=== PATIENT | male | born 1950 | race Caucasian/White ===

== ENCOUNTER 2019-05-20 01:25 | Day surgery (SDC) | payer MEDICARE, SELFPAY ==
[2019-05-13 11:03] VITALS: BMI 26.9
[2019-05-20 07:10] VITALS: BP 143/73; PULSE 70; RESP 16; TEMP 36.7; O2SAT 98; BMI 26.6
[2019-05-20] MEDS: LACTATED RINGERS 1,000 ML 150 ML IV CONT (07:24)
--- NOTE | 2019-05-20 07:39 | PM.IMHP ---
H&P: HPI History of Present Illness Chief complaint: Neoplasm Screening Narrative: Parth Alexander is a 68 year old male presents for surveillance colonoscopy. His last colonoscopy was in 2012 and had diverticlosis. he does have hx of large polyp in 2002 and had a post polypectomy bleed that required hospitlization and blood transfusions. He does take metamucil daily to help with constipation. He denies any melena, hematochezia, rectal pains or abdominal pains. He does have chronic left upper rib pain for 3 years that he describes as spasms like. He says there is no correlation with eating or bowel habit changes. Denies abnormal weight loss, fever or chills. Denies family hx of GI maligancies. Review of Systems Review of Systems: All systems reviewed & are unremarkable except as noted in HPI and below PMFSH Past Medical History Medical History (Updated 05/20/19 @ 07:43 by Jessie Lamb, CHURN DRILLER HELPER) Hx of colonic polyps Hx of lower gastrointestinal bleeding Surgical History Surgical History (Updated 05/20/19 @ 07:43 by Jessie Lamb, CH[employer] DRILLER HELPER) History of bilateral knee replacement Hx of colonoscopy Family History Family History (Updated 11/20/17 @ 16:38 by DOCTOR UNKNOWN) Mother Family history of cardiovascular disease, Onset Age: 71 Father Family history of malignant neoplasm, Onset Age: 57 Social History Social History (Updated 05/20/19 @ 07:43 by Jessie Lamb, [employer] DRILLER HELPER) Smoking status: Never smoker Alcohol intake: current Drinks per week: 14 Substance use: never Living arrangements: with family Occupation/Education: occupation Additional occupation/education comments: [employer] Gender identity (if verbalized by the patient): Male Meds Home Medications and Allergies Home Medications Medication Instructions Recorded Confirmed Type amlodipine 10 mg PO DAILY 05/13/19 05/13/19 History gabapentin 600 mg PO TID 05/13/19 05/13/19 History zolpidem 10 mg PO HS 05/13/19 05/13/19 History Allergies Allergy/AdvReac Type Severity Reaction Status Date / Time No Known Allergies Allergy Mild Verified 05/20/19 07:08 Vital Signs Vital Signs - 24 hr 05/20/19 07:10 Temperature 36.7 C Pulse Rate 70 Respiratory Rate 16 Blood Pressure 143/73 H Pulse Oximetry 98 Exam Const: General: cooperative, healthy appearing, comfortable, alert and awake Nutritional Appearance: average body habitus Orientation/consciousness: oriented to person, oriented to place, oriented to time and patient oriented x3 Limitations: no limitations HENMT: Head: normal to inspection and normocephalic Mouth: Yes Normal oral and palatal mucosa present and Yes moist mucous membranes Neck: Neck: normal visual inspection, supple and no JVD Carotids: no bruits Resp: Effort & Inspection: normal respiratory effort and no respiratory distress Auscultation: clear to auscultation bilaterally Cardio: Rate: regular rate Rhythm: regular rhythm Heart sounds: S1 normal heart sound present, S2 normal heart sound present, no gallops, no murmurs and no rubs GI: Inspection: normal to inspection GI Palp: No abdominal tenderness and No No hepatosplenomegaly present Percussion: Yes normal to percussion Auscultation: normal bowel sounds Rectal Exam: deferred Skin: General skin exam: normal color Lesions: no lesions Rashes: no rashes Neuro: General: oriented to person, oriented to place, oriented to time, patient oriented x3 and moves all extremities Cognition (Neuro): normal cognition Speech: normal speech Gait exam (Neuro): Normal gait present Extrem: General: normal to inspection Psych: Appearance: grossly normal Mental Status: mental status grossly normal Speech and movement: Normal speech and movement present Affect: normal affect Attitude: cooperative Thought process: Normal thought process present Assessment and Plan Assessment and plan (1) Hx of colonic polyps: Code(s): Z
--- NOTE | 2019-05-20 07:54 | WPDANESEPPF ---
Anes - Initial Pre Proc Eval Procedure: Operation Date: 05/20/19 08:00 Proposed Procedures p Screening Colonoscopy - Elio Wright DO Date/Time: 05/20/19 07:54 Surgeon: Elio Wright DO Pre Op Diagnosis: Neoplasm Screening Patient Data Age: 68 Gender: M Height: 5 ft 7 in Weight: 77.1 kg Last Vital Signs Temp 98.1 F 05/20/19 07:10 Pulse 70 05/20/19 07:10 Resp 16 05/20/19 07:10 BP 143/73 H 05/20/19 07:10 Pulse Ox 98 05/20/19 07:10 Allergies Allergy/AdvReac Type Severity Reaction Status Date / Time No Known Allergies Allergy Mild Verified 05/20/19 07:08 Home Medications Medication Instructions Recorded Confirmed Type amlodipine 10 mg PO DAILY 05/13/19 05/13/19 History gabapentin 600 mg PO TID 05/13/19 05/13/19 History zolpidem 10 mg PO HS 05/13/19 05/13/19 History Patient hx anesthesia problems: none Family hx anesthesia problems: none PMFSH Past Medical History Medical History (Updated 05/20/19 @ 07:54 by Scout Houser MD) Hx of colonic polyps Hx of lower gastrointestinal bleeding Hx of prostatic malignancy Hyperlipidemia Hypertension Surgical History Surgical History (Updated 05/20/19 @ 07:43 by Jessie Lamb, ELECT[employer]ICS WARF[employer] TECHNICIAN) History of bilateral knee replacement Hx of colonoscopy Family History Family History (Updated 11/20/17 @ 16:38 by DOCTOR UNKNOWN) Mother Family history of cardiovascular disease, Onset Age: 71 Father Family history of malignant neoplasm, Onset Age: 57 Social History Social History (Updated 05/20/19 @ 07:43 by Jessie Lamb, ELECTRON[employer] WARF[employer] TECHNICIAN) Smoking status: Never smoker Alcohol intake: current Drinks per week: 14 Substance use: never Living arrangements: with family Occupation/Education: occupation Additional occupation/education comments: [employer] Gender identity (if verbalized by the patient): Male Anes - Eval Final PreProcedure Day of Procedure 05/20/19 07:54 Patient weight: overweight Heart: regular rate and rhythm Lungs: clear to auscultation Airway: Mallampati scale class II Neurological: alert and oriented Last oral intake: >/= 8 hours ASA classification: III Emergent: no Anesthetic plan: proceed Anesthesia type and monitoring: general GIVS and standard monitoring Informed Consent: The patient's anesthetic plan and its attendant risks and benefits were discussed with the patient/family/POA. Questions were solicited and answers provided to the satisfaction of the patient/family/POA.
[2019-05-20 08:38] VITALS: BP 100/61; PULSE 61; RESP 17; O2SAT 99
[2019-05-20 08:39] VITALS: BP 113/62; PULSE 62; RESP 18; O2SAT 100
[2019-05-20 08:49] VITALS: BP 117/76; PULSE 60; RESP 20; O2SAT 100
== END 2019-05-20 09:03 | disposition home or self-care (01) ==
PROVIDERS: PCP Family Medicine; Visit Provider Internal Medicine Gastroenterology
PROC: 0DJD8ZZ Inspection of Lower Intestinal Tract, Via Natural or Artificial Opening Endoscopic (ICD-10-PCS; CPT 45378; principal; 2019-05-20 08:00)
DX: Z12.11 Encounter for screening for malignant neoplasm of colon (principal); D12.0 Benign neoplasm of cecum; D12.4 Benign neoplasm of descending colon; K63.5 Polyp of colon; K62.1 Rectal polyp; K57.30 Diverticulosis of large intestine without perforation or abscess without bleeding; K64.8 Other hemorrhoids; I10 Essential (primary) hypertension; E78.5 Hyperlipidemia, unspecified; Z85.46 Personal history of malignant neoplasm of prostate
CPT/HCPCS: 45385; 45380; 88305; J2704; J7120

== ENCOUNTER 2019-12-31 13:20 | Outpatient (CLI) | payer MEDICARE, SELFPAY ==
--- NOTE | 2019-12-31 | ECHO_ITS ---
Patient Info Name: Parth Alexander Age: 69 years : 1950 Gender: Male Ht: 67 in Wt: 170 lbs BSA: 1.92 m2 HR: 70 bpm BP: 131 / 84 mmHg Technical Quality: Fair Exam Date: 12/31/2019 1:53 PM Exam Location: [facility] Patient Status: Outpatient Admit Date: 12/31/2019 Staff Ordering Physician: AnahiPk DO Pigment Supplier: Emily Sanots RDCS Attending Provider: Anahi, Pk PERRY Exam Type: CA echo doppler color flow Study Info Indications - murmur Complete two-dimensional, color flow and Doppler transthoracic echocardiogram is performed. Summary 1. Complete two-dimensional, color flow and Doppler transthoracic echocardiogram is performed. 2. Left ventricular chamber dimension is normal. 3. Left ventricular systolic function is normal, estimated at 60-65%. 4. There is mildly increased left ventricular wall thickness. 5. The left ventricular diastolic function is grade I diastolic dysfunction. 6. E/e' 8 is minimally elevated. 7. Left atrial chamber dimension is mildly enlarged. 8. There is mild aortic valve sclerosis. 9. There is trace aortic valve regurgitation. 10. There is trace mitral valve regurgitation. Left Ventricle E/e' 8 is minimally elevated. Left ventricular chamber dimension is normal. Left ventricular systolic function is normal, estimated at 60-65%. There is mildly increased left ventricular wall thickness. The left ventricular diastolic function is grade I diastolic dysfunction. Right Ventricle Right ventricular chamber dimension is normal. Right ventricular systolic function is normal. Left Atria Left atrial chamber dimension is mildly enlarged. Right Atria Right atrial chamber dimension is normal. Aortic Valve The aortic valve is trileaflet. There is mild aortic valve sclerosis. There is no aortic valve stenosis. There is trace aortic valve regurgitation. Pulmonic Valve There is no pulmonic regurgitation. Mitral Valve There is no mitral valve stenosis. There is trace mitral valve regurgitation. Tricuspid Valve There is no tricuspid valve regurgitation. Pericardium/Pleural There is no pericardial effusion. Inferior Vena Cava Normal inferior vena cava with >50% collapse upon inspiration consistent with normal right atrial pressure, 5 mmHg. Aorta The aortic root size at the sinus of Valsalva is normal. Left Ventricular Outflow Tract Name Value Normal LVOT 2D LVOT Diameter 2.0 cm LVOT Doppler LVOT Peak Gradient 2 mmHg LVOT Mean Gradient 1 mmHg LVOT VTI 24 cm LVOT VTI/AV VTI Ratio 1.1 LVOT Stroke Volume 72 ml LVOT CO 3.5 l/min LVOT CI 1.8 l/min/m2 Mitral Valve Name Value Normal MV Doppler
== END 2019-12-31 13:21 | disposition home or self-care (01) ==
PROVIDERS: PCP Student in an Organized Health Care Education/Training Program; Visit Provider Student in an Organized Health Care Education/Training Program
DX: R01.1 Cardiac murmur, unspecified (principal); I35.0 Nonrheumatic aortic (valve) stenosis
CPT/HCPCS: 93306

== ENCOUNTER → 2020-06-05 09:40 | Outpatient (CLI) | payer MEDICARE, SELFPAY ==
--- NOTE | ~2020-06-05 | CT_ITS ---
EXAMINATION: CT abdomen pelvis w con DATE: 06/05/2020 10:27 INDICATION: Left upper quadrant abdominal pain and tenderness. Constipation. Malignant neoplasm of pr ostate. TECHNIQUE: Computed tomography (CT) of the abdomen and pelvis was performed with 100 cc Omnipaque 350 intravenous contrast. Automated exposure control and iterative reconstruction technique were employe d. Exam dose: 590.66 mGy-cm total exam DLP. COMPARISON: 03/31/2015 CT abdomen 08/16/2011 CT abdomen pelvis FINDINGS: The lung bases are clear of consolidation. Normal heart size. No pericardial or pleural eff usion. Small sliding hiatal hernia. Diffuse hepatic steatosis. No hepatic space-occupying mass lesion. The gallbladder is present; no gal lbladder wall thickening or pericholecystic fluid or fat stranding. No bile duct dilatation. There is interval-defined soft tissue mass in the region of the pancreatic neck, with dilatation of t he pancreatic duct in the body and tail of the pancreas, up to 7.5 mm pancreatic duct diameter. There is encasement and narrowing of the portal vein and superior mesenteric and splenic veins by the mass. Varices are noted. There is splenomegaly, the spleen measuring 14 cm vertical dimension, vasquez red to 11 cm on 03/31/2015. The findings are consistent with pancreatic malignancy. Normal morphology of the adrenal glands. No renal mass lesion or urinary tract calculus or hydrourete ronephrosis. The urinary bladder is unremarkable. There are bilateral fat-containing inguinal hernias, larger on the right. A loop of small bowel exten ds into the proximal aspect of the right inguinal hernia. There is normal caliber Small fat-containing umbilical hernia. Of the abdominal aorta. No abdominal aortic aneurysm. There is prostate enlargement and calcification. There is mild diffuse thickening of the urinary blad ginny wall. There are numerous diverticula of the sigmoid colon with lesser involvement of the descending colon. No CT evidence of diverticulitis. Normal appendix. No bowel obstruction, bowel wall thickening, pneum atosis or intraperitoneal free air. No suspicious osteolytic or osteoblastic lesions. Diffuse idiopathic skeletal hyperostosis of the lower thoracic spine. Degenerative changes of the lum bar spine. IMPRESSION: Pancreatic malignancy with dilatation of the pancreatic duct in the body and tail and en casement of the superior mesenteric, splenic and portal veins, with secondary splenomegaly and varice s Small sliding hiatal hernia Diffuse hepatic steatosis Prostate enlargement and calcification Diverticulosis of the left colon Small fat-containing umbilical hernia Bilateral inguinal hernias, the right inguinal hernia and including a short loop of small bowel, with out obstruction or strangulation Reviewed, dictated and finalized at [facility] Reviewed, dictated and finalized at [facility]. [facility] IMPRESSION: Pancreatic malignancy with dilatation of the pancreatic duct in th e body and tail and encasement of the superior mesenteric, splenic and portal v eins, with secondary splenomegaly and varices Small sliding hiatal hernia Diffuse hepatic steatosis Prostate enlargement and calcification Diverticulosis of the left colon Small fat-containing umbilical hernia Bilateral inguinal hernias, the right inguinal hernia and including a short loo p of small bowel, without obstruction or strangulation
[2020-06-05 10:05] LABS: Estimated Glomerular Filt Rate > 60
== END ==
PROVIDERS: PCP Student in an Organized Health Care Education/Training Program; Visit Provider Student in an Organized Health Care Education/Training Program
DX: K59.00 Constipation, unspecified (principal); C61 Malignant neoplasm of prostate; K44.9 Diaphragmatic hernia without obstruction or gangrene; K76.0 Fatty (change of) liver, not elsewhere classified; K57.30 Diverticulosis of large intestine without perforation or abscess without bleeding; K42.9 Umbilical hernia without obstruction or gangrene; K40.20 Bilateral inguinal hernia, without obstruction or gangrene, not specified as recurrent
CPT/HCPCS: 74177; Q9967